=== PATIENT | male | born 1945 | race Caucasian/White ===

== ENCOUNTER 2017-10-11 15:19 | Emergency (ER) | payer SELFPAY ==
[~2017-10-11] VITALS: Ht 177.8 cm; Wt 68.0 kg
[2017-10-11 15:55] VITALS: BP 140/93
--- NOTE | 2017-10-11 15:55 | NUR ---
BIBA FOR A [address]150 [address] BY [facility] FOR GRAVELY DISABLED. WAS WONDERING IN STREET, UNKNOWN STATUS. LANGUAGE BARRIER-MANDARIN. UPON USING A [employer]ARM IMPLEMENT ENGINE MECHANIC PHONE, PT IS ALERT,ORIETEN TO NAME, D.O.B, DAY, YEAR, AND SITUATION. I USED [employer]ARM IMPLEMENT ENGINE MECHANIC BRENDAN #[id number] TO TRANSLATE, SHE [place] 2 [place], LIVES WITH DTR. 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 PT DENIES ANY MED HX, NO MEDS, NKA. VSS, DENIES ANY PAIN. VERBALIZES UNDERSTANDING THAT HE WILL STAY IN HOSPITAL UNTIL SOMEONE COMES TO PICK HIM UP. PT USING HAND GESTURES TO WANT TO GET IN BED AND GO TO SLEEP. FLUIDS AND FOOD OFFERED, BUT KINDLY REFUSED. WILL MONITOR CLOSELY. CN AND DR HARTMAN NOTIFIED OF TRANSLATER CONVERSATION, TUBE ROOM SUPERVISOR CHELSI HAS PAGED MILL ROLL REWINDER PSYCH TO CLEAR PT.
--- NOTE | 2017-10-11 17:12 | NUR ---
DTR AT BEDSIDE, STATES SHE WAS TRYING TO FIND PT [place] OVER [place]. INFORMS US THAT PT IS NOT SICK AND JUST GOT LOST. DR HARTMAN AT BEDSIDE, ATTEMPTING TO CLEAR PT BY CONTACTING PSYCH MD TO CLEAR.
--- NOTE | 2017-10-11 17:22 | NUR ---
DTR AT BEDSIDE REFUSING BLOOD DRAW, DR HARTMAN INFORMED, STATES AFTER TALKING TO DTR, ALL TETS HAVE BEEN CANCELLED.
--- NOTE | 2017-10-11 18:13 | NUR ---
PT INCREASINGLY AGITATED, DTR ALSO FRUSTRATED BECAUSE SHE CANT TAKE HER DAD HOME. NEEL ATTEMPTS AT EXPLAINING CIRCUMSTANCES TO DTR, SHE IS UNWILLINGLY TO SIT BY DAD AND WANTS TO WAIT OUTISDE WITH HER . CN NOTIFIED. PT REFUSES TO SIT DOWN IN CHAIR.
--- NOTE | 2017-10-11 18:49 | NUR ---
PSYCH EMD AT BEDSIDE TO TALK WITH DTR, 5150 HOLD UPLIFTED.
[2017-10-11 19:30] VITALS: BP 115/85
--- NOTE | 2017-10-11 19:30 | NUR ---
Patient discharged with v/s stable. Written and verbal after care instructions given and explained. Patient verbalized understanding. Ambulatory with steady gait. All questions addressed prior to discharge. Advised to follow up with PMD. PT NO LONGER ON 5150 HOLD.
== END 2017-10-11 19:30 | disposition home or self-care (01) ==
LOC: MED 15:19
DX: Z00.00 Encounter for general adult medical examination without abnormal findings (principal)
CPT/HCPCS: 99281; 99283; 99285